=== PATIENT | male | born 1985 | race Caucasian/White ===

== ENCOUNTER → 2016-10-20 | Day surgery (SDC) | payer OTHER ==
--- NOTE | 2016-10-14 12:10 | PCM.ANEPRE ---
Anesthesia Pre-Op Review Reason for Review: presumed personal hx of malignant hyperthermia- Anesthesia Recommendations: Proceed with Procedure Additional Comments h/o Malignant hyperthermia. Presents for laparoscopic repair recurrent RIH. Plan TIVA with MH precautions. Chart Reviewed by: Joseph Santiago MD Oct 14, 2016 12:09
[2016-10-20] VITALS (13 sets, daily range): BP systolic 105–146; BP diastolic 50–91; PULSE 56–89; RESP 10–18; O2SAT 95–98
[~2016-10-20] VITALS: Ht 182.9 cm; Wt 87.7 kg
[~2016-10-20] MED LIST: ACET500C49 PO; Bupivacaine-MPF 0.5% 30 mL Inj INFILTRATE ONE; CeFAZolin 2 Gm/50 mL D5W IV Premix IV ONE; Dexamethasone 4 mg/mL Inj ONE; EPHEDrine Sulfate 50 mg/mL Inj IVPUSH PRN; HYDROmorphone 1 mg/mL Inj IVPUSH PRN; Lactated Ringer's 1,000 ML IV ONE; Lactated Ringer's 1,000 ML IV SCH; Lactated Ringer's 500 ML IV PRN; MULT-1018 PO; MetoCLOpramide 5 mg/mL 2 mL Inj IVPUSH PRN; OXYC5TAB72 PO; Ondansetron 2 mg/mL 2 mL Inj IVPUSH PRN; Ondansetron 2 mg/mL 2 mL Inj ONE; POLY17PO6 PO; Phenylephrine 10,000 mCg/mL Inj IVPUSH PRN; Polyethylene Glycol (PEG) 17 Gm Powder PO SCH; Propofol 10,000 mCg/mL 20 mL Inj ONE; Rocuronium 10 mg/mL 5 mL Inj ONE; fentaNYL-PF 50 mCg/mL 2 mL Inj ONE; oxyCODONE-Acetamin 5-325 mg Tablet PO PRN
--- NOTE | 2016-10-20 08:26 | PCM.HPANE ---
Patient Data Date of Service: Oct 20, 2016 Surgeon Admitting Provider: Attending Provider:Monalisa Brady MD Primary Care Physician:Williams Other Provider:Cedric Park Anesthesia Reason for Visit Recurrent Right Inguinal Hernia Ht/WT & BMI Height (Feet): 6 Height (Inches): 0.00 Weight (Kilograms): 87.680 Body Mass Index 26.00 Allergies Coded Allergies: Sulfa (Sulfonamide Antibiotics) (Verified Allergy, Unknown, UNKNOWN, ) shellfish derived (Verified Allergy, Unknown, throat swells, 10/12/16) Past Anesthesia History Anesthesia History: Positive for:: Fam Malignant Hypertherm (unclear, but reports mother said "yes" to (+)family history of MH), Denies:: Abnormal Airway, Anesthesia Reactions, Difficult Intubation, Fam Anesthesia Reaction, Malignant Hyperthermia Diabetes History Hx Diabetes?: No MRSA MRSA: No Medications Hypertension Medication: No Home Meds Incl Beta Sonny: No Reported Medications Multivitamin (Multi Vitamin Daily)1 Each Tablet1 Each PO DAILY 30 Days Ref 0 10/12/16 History History of ENT Problems?: No HEENT History: Denies:: Abnormal Airway Cataracts Difficult Intubation Dysphagia Glaucoma Hearing Problem Sinus Problem TMJ Denture Type: None Teeth Condition: Broken Teeth Missing Teeth Hx of Heart Problems?: No Cardiovascular History: Positive for:: Hypertension Denies:: AICD Cardiac Surgery Chest Pain Heart Murmur Irregular Heartbeat Pacemaker Peripheral Vascular Hx of Respiratory Problem?: No Respiratory History: Positive for:: Cough (RECENT COLD) Dyspnea (WHEEZING W/ COLD SX) Denies:: Asthma COPD Emphysema Oxygen Administration Pneumonia Tuberculosis Use of C-PAP Machine Use of Inhalers / NEBS Other History/Comment /ACTIVE SMOKER Hx Neurologic Problems?: No Neurological History: Denies:: CVA Headaches Multiple Sclerosis Parkinson's Disease Seizures TIA Hx of GI Problems?: Yes Gastrointestinal History: Denies:: Cirrhosis Diverticulitis Gall Bladder Disease Gastroesphageal Reflux Gastrointestinal Bleeding Heartburn Hepatitis Hiatal Hernia Liver Disease Rectal Bleeding Other GI Pertinent History: prior hx of inguinal hernia repair- bilateral- right hernia current admission problem Hx of Problems?: No Genitourinary History: Denies:: Kidney Stones Urinary Tract Infection Male Hx: Denies:: Prostate Problems Scrotal Mass Testicular Surgery Skin History: Denies:: History Skin Disorders? Pressure Ulcers Hx Musculoskeletal Problems?: No Musculoskeletal History: Positive for:: Musculoskeletal Trauma (C/OF LT KNEE PAIN W/ HEAVY USE) Denies:: Back Injury Fibromyalgia Osteoarthritis Systemic Lupus Other History/Comment Presumed MH, mother confirmed diagnosis. Hx of Psycho/Social Problems?: No Psycho Social History: Denies:: Anxiety (undiagnosed, pt thinks this is a positive though) Hx Depression Hx Surgeries?: Yes (bilateral inguinal hernia) Hx Any Other Health Problems?: Yes Other History: Denies:: Cancer Endocrine Disease Hospitalization Thyroid Disease History Blood Transfusions: Positive for:: Accept Blood Products? Denies:: Blood Transfusions Hx Diabetes: No Hx Alcohol Use: YesAlcoholic Drinks Per Day: heavy drinker- 18 pack beer daily on heaviest dayHx Substance Use: No (not currently- trialed variety of drugs 15 years ago ) Smoking Status: Current Every Day Smoker Have You Smoked inLast 12 mo: Yes (one pack day )Approx How Many Cigarettes/day : 20 Stop/Bang Treated for Sleep Apnea?: No Do You Have a CPAP Machine?: No S-Snoring: Do You Snore Loudly: No T-Tired: feel tired, fatigued: No O-Obsered: Observed not breath: No P-Blood Pressure: treated: No B- Body Mass Index > 35 kg/m2: No A- Age over 50: No N- Neck Large Circumference: No G- Gender Male: Yes CAROL Total Score: 1 CAROL Risk Assessment: Low Risk, <3 Yes Risk Assessment Category Category 1A: Patient has history of documented sleep apnea, and HAS NOT received any narcotic, sedative or anesthesia administration during this stay. Category 1B: Patient has history of documented sleep apnea, and HAS received any narcotic , sedative or anesthesia administration during this stay Category 2: Patient has SUSPECTED Obstructive Sleep Apnea, and HAS received any narcotic , sedative or anesthesia administration during this stay. Category 3: Patient has SUSPECTED Obstructive Sleep Apnea and HAS NOT received narcotic, sedative or anesthesia administration during this stay. Category 4: Outpatient in Procedural Areas with known sleep apnea or who screen positive for High Risk via the STOP/BANG questionnaire. Exam Exam Vital Signs Vital Signs Date Time Temp Pulse Resp B/P Pulse Ox O2 Delivery O2 Flow Rate FiO2 10/20/16 06:20 36.5 75 14 146/91 97 Room Air General Appearance: Alert, Oriented X3, Cooperative, No Acute Distress HEENT/AIRWAY: MP 2 Lungs: Clear to Auscultation, Normal Air Movement Heart: Exam Unremarkable, Regular Rate/Rhythm, No Murmurs/Rubs/Gallops Meds/Labs/Diagnostics Admission Meds Current Medications Lactated Ringer's (Lr) 1,000 ml @ 120 mls/hr [id number] ONCE IV Last administered on 10/20/16t 06:01; Start 10/20/16 at 05:00; Stop 10/20/16 at 13:19 Plan Impression Patient chart reviewed, patient interviewed and anesthestic plan with risks, benefits, and alternatives discussed, and informed consent obtained. ASA Physical Status: ASA3 Severe Disease Anesthetic Plan: GA, TIVA Bene/Risks/Altern/Consents: Yes HP Complete Prior to Induction: No Other No intranet to complete preop documentation. H&P interview done preoperatively. Dylon Mora MD Oct 20, 2016 08:26
--- NOTE | 2016-10-20 11:13 | PCM.SURGPO ---
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 Complications There were no periprocedural complications identified. Surgical Specimen Removed: No Specimen sent to Pathology: No Anesthetic Administered: GA Grafts, Implants: Implants-See Implant Record Output, Estimated Blood Loss: 1 Blood Admin during surgery: No Additional information Attic Blower listed was medically necessary for the successful completion of the case Monalisa Brady MD Oct 20, 2016 11:04
[2016-10-20] MEDS: fentaNYL-PF 50 mCg/mL 2 mL Inj IVPUSH PRN ×2 (11:42→11:50)
--- NOTE | 2016-10-20 13:20 | PCM.ANEP1 ---
Post Anesthesia PACU Phase 1 Assessment Date of Service: Oct 20, 2016 Vital Signs Vital Signs Date Time Temp Pulse Resp B/P Pulse Ox O2 Delivery O2 Flow Rate FiO2 10/20/16 13:03 74 16 124/73 96 Room Air 10/20/16 12:45 89 16 120/76 96 Room Air 10/20/16 12:25 76 14 129/73 96 Room Air 10/20/16 12:05 36.6 67 16 113/68 97 Room Air 10/20/16 12:00 74 15 110/74 96 Room Air 10/20/16 11:45 85 17 105/64 95 Room Air 10/20/16 11:30 74 16 109/66 95 Room Air 10/20/16 11:20 56 10 111/64 95 Room Air 10/20/16 11:17 36.8 64 18 116/50 95 Room Air 10/20/16 11:13 72 15 125/74 95 Room Air 10/20/16 11:05 66 14 124/78 98 Simple Mask 10 10/20/16 11:00 37.3 68 17 124/76 97 Simple Mask 10 10/20/16 06:20 36.5 75 14 146/91 97 Room Air Level of Alertness: Awake, talking WILLIAM's with Equal Strength: Yes Pain: Yes Nausea or Vomiting: No CV Function & Hydration Stable: Yes Airway Device: Oxygen Delivery: Room Air Lungs: Clear to Auscultation, Normal Air Movement PACU Phase 2 Assessment Complications: No Follow up Care: No Patient Instructions Provided: Yes Comments Discussed s/s of MH with spouse prior to discharge requiring emergent hospital care. Dylon Mora MD Oct 20, 2016 13:20
--- NOTE | 2016-10-20 18:29 | OP ---
[address] [address] OPERATIVE REPORT PATIENT: CONNOR CAMARILLO : 1985 MR#: [id number] ADMIT: 10/20/2016 JOB ID: [id number] DATE OF SURGERY: 10/20/2016 SURGEON: Monalisa Brady MD ASSISTANTS: Pedro Mak MD, Snow Henning DO PREOPERATIVE DIAGNOSIS(ES): Recurrent right inguinal hernia. POSTOPERATIVE DIAGNOSIS(ES): Recurrent right direct inguinal hernia. PROCEDURE PERFORMED: Laparoscopic transabdominal preperitoneal right inguinal hernia repair with mesh. COMPLICATIONS: None. CONDITION OF THE PATIENT: Stable. INDICATIONS: This patient is a 31-year-old gentleman who had a left inguinal hernia repair in childhood and right inguinal hernia repair primarily done by Dr. Torres in July 2012. Over the last couple of months, he noted discomfort and swelling associated with the right groin and he came to see me. After discussing the risks, benefits, and alternatives, he is here today for laparoscopic repair of the right inguinal hernia. PROCEDURE DETAILS: He was placed in a supine position and underwent smooth induction of general anesthesia, had a Muniz catheter placed. Abdomen was prepped and draped in usual sterile fashion. Surgical time-out was undertaken using safety checklist, and all were in agreement. I began by making an infraumbilical incision and entered the left retrorectus space after incising the anterior rectus sheath and moving the rectus abdominis muscle laterally. But when I tried to place a 10 mm port into the retrorectus space, I inadvertently entered the peritoneal cavity leading me to insufflate the abdomen. At this point, I tried to withdraw and see if I could close the defect, but I could not, so I decided to convert to a laparoscopic transabdominal approach. I then placed two 5 mm ports each in the lateral aspect at the umbilical level and created a peritoneal flap making sure to leave the epigastric vessels intact next to the muscle. I developed preperitoneal space inferiorly towards the groin and found direct inguinal hernia along with cord lipoma which I reduced with a combination of blunt and sharp dissection. I was able to visualize the cord structures well and preserve them and I created a plane medially beyond Juan's ligament, mobilizing the bladder posteriorly to give adequate space for the mesh. After making sure I had the dissection both laterally and medially, where I felt like I could place the mesh laying flat, I took a medium right 3D Max Mesh and anchored it to the Juan's ligament medially with absorbable tacking device. After that making sure that when I am pulling the peritoneum that the mesh is not getting displace, I closed the peritoneal flap with 2-0 Vicryl V-Loc suture. After this, we desufflated the abdomen while we placed the patient in reverse Trendelenburg position, making sure the mesh does not get displaced and closed the umbilical port fascia with [id number] 0-Vicryl suture. Skin was reapproximated with 4-0 Monocryl. Steri-Strips and sterile dressing were applied. Patient was recovered from anesthesia and was taken to the recovery room in stable condition. RENETTA
== END | disposition home or self-care (01) ==
LOC: SAS 05:33
PROVIDERS: ATTEND Student in an Organized Health Care Education/Training Program
PROC: 0YU54KZ Supplement Right Inguinal Region with Nonautologous Tissue Substitute, Percutaneous Endoscopic Approach (ICD-10-PCS; principal; 2016-10-20 07:30)
DX: K40.91 Unilateral inguinal hernia, without obstruction or gangrene, recurrent (principal); F17.210 Nicotine dependence, cigarettes, uncomplicated
CPT/HCPCS: 49651; C1781; J0690; J1100; J2405; J2704; J3010; J7120